=== PATIENT | female | born 1950 | race American Indian/Alaskan Native ===

== ENCOUNTER 2018-01-09 06:31 | Day surgery (SDC) | payer OTHER | END 2018-01-09 12:50 | disposition home or self-care (01) | LOC: AMB-ENDOS 06:31 | DX: D12.5 Benign neoplasm of sigmoid colon (principal); K64.1 Second degree hemorrhoids; K57.30 Diverticulosis of large intestine without perforation or abscess without bleeding ==

== ENCOUNTER 2019-03-05 09:00 | Day surgery (SDC) | payer OTHER | END 2019-03-05 19:30 | disposition home or self-care (01) | LOC: AMB-ENDOS 09:00 | DX: D12.2 Benign neoplasm of ascending colon (principal); K64.1 Second degree hemorrhoids ==

== ENCOUNTER 2019-11-01 08:45 | Outpatient (CLI) | payer OTHER | END 2019-11-01 08:49 | disposition home or self-care (01) | LOC: SONOGRAMA 08:45 | DX: E04.2 Nontoxic multinodular goiter (principal) ==